=== PATIENT | female | born 1955 | race Caucasian/White ===

== ENCOUNTER 2016-07-19 13:50 | Inpatient (IN) | payer BC ==
[~2016-07-19] VITALS: Ht 160 cm; Wt 57.8 kg
--- NOTE | ~2016-07-19 | OR ---
PATIENT'S NAME: LAKSHMI ABERNATHY [facility] AGE: 61 Y [address] 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 PROCEDURE PERFORMED: Right nephroureterectomy. ANESTHESIA: General with epidural. ESTIMATED BLOOD LOSS: 50 mL. INDICATIONS FOR PROCEDURE: The patient is a 61-year-old female, who has experienced gross hematuria for approximately 6 months. The patient had a cystoscopy with retrograde pyelograms and also a repeat abdominal and pelvic CT scan with IV contrast that revealed a right renal pelvic tumor consistent with transitional cell carcinoma. DETAILS OF PROCEDURE: After informed consent was obtained, the patient was taken to the operating room. The epidural and then a general anesthetic was applied. The patient was placed in the supine position. The abdomen and groin area were prepped and draped in normal sterile fashion. A Celis catheter was placed and the bladder was filled to approximately 200 mL. Again, the abdomen was prepped and draped in normal sterile fashion. A right subcostal skin incision was made with a scalpel blade. Electrocautery was then used to carry the incision down to the anterior fascial layer. The anterior fascial layer was then opened with electrocautery. The rectus muscle was divided. We then opened the posterior fascial layer with electrocautery. The kidney was clearly visualized. Gerota's fascia was opened anteriorly. This was then dissected off the kidney. The kidney was completely freed up. We identified the ureter and placed a vessel loop around it. Next, we identified the renal vessels. She appeared to have significant superficial renal veins and also two renal arteries. We then clamped and divided the superficial renal vein. These were tied off with a silk suture. Next, the pedicle clamp was placed around the renal vein and arteries. These were then divided and tied off with two 2-0 silk sutures, placed around it twice. This PATIENT'S NAME: LAKSHMI ABERNATHY [facility] AGE: 61 Y [address] ROOM: [address] [address] [place] [facility] [place]: 07/20/2016 OR/Procedure Report DISCHARGE DATE: FAMILY PHYSICIAN: Kaitlin Saleem MD ATTENDING PHYSICIAN: Betzy Templeton freed up the specimen. We then divided the ureter and placed a hemostat on the proximal, and the kidney was handed off to be sent to Pathology. We then traced, freed up the ureter down towards the pelvis. Once this was completed, then we divided the ureter and tied off with a long silk suture to help us to identify it. The wound was irrigated with water. The posterior fascia was then closed with a running interlocking #1 Vicryl suture. The anterior fascial layer was closed with a #1 nylon suture in a running fashion. Subcuticular tissue was closed with interrupted 3-0 Vicryl sutures and the skin was closed with amita. Next, a lower midline skin incision was made in her previous scar tissue. This was made with a scalpel blade and then the fascial layer was opened with electrocautery. We located the remnants of the ureter and dissected down to the bladder. The patient has had colon stuck to her bladder in multiple locations from her previous surgery. Because of this, it made it difficult to enter into the bladder safely and so it was decided to dissect the ureter down to the bladder and then it was clamped and divided. We then tied off the distal segment with a silk suture. A frozen section of the distal ureter was negative for cancer. Next, we closed the fascial layer with a running #1 nylon suture. Juan's layer was closed with interrupted 3- 0 Vicryl sutures, and the skin was closed with amita. The wounds were then dressed in normal sterile fashion. The patient tolerated her procedure very well and was transferred to the recovery room in good condition. MD KEVIN BRAKLEY/ashleigh /[id number] d: 07/20/16 2225 t: 07/26/16 0942, OPERATIVE SUMMARY
--- NOTE | ~2016-07-19 | DS ---
PATIENT'S NAME: LAKSHMI ABERNATHY [facility] AGE: 61 Y [address] ROOM: [address] [address] [place] [facility] [place]: 07/20/2016 Discharge Summary DISCHARGE DATE: 07/23/2016 FAMILY PHYSICIAN: Kaitlin Saleem MD ATTENDING PHYSICIAN: Betzy Templeton ADMITTING DIAGNOSIS: Right renal pelvic transitional cell carcinoma. DISCHARGE DIAGNOSIS: Right renal pelvic transitional cell carcinoma. PROCEDURE PERFORMED: Right nephroureterectomy. HOSPITAL COURSE: The patient is a 61-year-old female with a history of recurrent gross hematuria. After the appropriate evaluation, she was noted to have a right renal pelvic mass consistent with transitional cell carcinoma of the right renal pelvis. The patient underwent right nephroureterectomy on the day of admission without complication. On the first postoperative day, she was afebrile with stable vitals. Her creatinine was 1.0 and her hemoglobin and hematocrit were 10.9 and 33.1 respectively. The patient was started on sips of clears, then up into the chair. On the second postoperative day, the patient was passing flatus with good bowel sounds. She was started on clear liquids and her diet was advanced as tolerated and she began ambulating. On the third postoperative day, the patient was tolerating a regular diet and ambulating. Her epidural catheter was removed early in the morning and her Celis catheter was also removed. The patient was discharged to home with followup scheduled with myself in 3 months and in 1 week, she will see her family physician for staple removal. Final pathology report indicated transitional cell carcinoma of the renal pelvis without spread. All margins were negative. MD KEVIN BARKLEY/ashleigh /[id number] d: 07/24/16 0010 t: 08/16/16 1914, DISCHARGE SUMMARY
[~2016-07-19 13:50] MED LIST: CALCIUM 500 +1 EAC4 PO; DUAVEE 0.45-201 EACH PO; THERA-VITE W/ B1 TAB PO
--- NOTE | 2016-07-20 15:28 | NUR ---
Met with patient, , daughter and son-in-law at bedside today. Introduced myself and explained my role with the CM department. Very pleasant family. Patient's plan is to return home once medically cleared for discharge. Her daughter is planning on staying with her through next Tuesday and can stay longer if necessary. She has another daughter who has offered to come and stay as well as many friends and shinto members that have offered to assist with care. Patient and family have two questions they want to address with Dr. Templeton. I placed two notes on patient's chart and also shared these questions with patient's nurse Danielle. First they want to know an approximate time period it will be before they have the pathology results. Second, patient states a nurse in pre-op mentioned to her the possibility of going home on an epidural to help with pain control. She states that she does not tolerate pain meds well and she really does not want to take Percocet because she does not like the way it makes her feel. Her nurse Danielle states she is not aware of patient's going home with an epidural. Charge nurse Kristyn states some have had an epidural injection. I have a note on the chart so hopefully Dr. Templeton will address this with patient. Will continue to offer supports and follow while here.
--- NOTE | 2016-07-20 17:31 | NUR ---
LATE ENTRY 0917 PATIENT ARRIED WITH EPIDURAL. BOLUS ADMINISTERED VIA BRANCH OPERATIONS SPECIALIST. CAD PUMP INITIATED AT 1000. HAD A DIFFICULT TIME WITH PAIN CONTROL AND HAD TO INCREASE EPIDURAL AND GAVE A BOLUS FOR BETTER PAIN CONTROL. PATIENT WAS NAUSIATED AND ZOFRAN GIVEN FOR NAUSIA. 1100 PAIN IS TOLERABLE AT THIS TIME. NO MORE NAUSIA. DRESSING CONTINUE TO HAVE SOME SHADOWING BUT IS HAS NOT INCREASED, 1130 GOOD PAIN CONTROL. PATIENT HAS BEEN RESTING COMFORTABLE. O2 HAS BEEN WEANED TO 2 LITERS. GOOD URINE OUTPUT. 1200 CONTINUES TO REST COMFORTABLE NO CHANGES IN ASSESSMENT, GOOD PAIN CONTROL. 1230 CONTINUES TO REST COMFORTABLE WITH GOOD PAIN CONTROL. EASILY AROUSES. 1300 TRANSFERED TO MED/SURG. PATIENT STABLE, GOOD PAIN CONTROL.
--- NOTE | 2016-07-20 17:31 | NUR ---
Significant Event: PT ARRIVED FROM PACU AT 1310, R NEPHROURETERECTOMY FOR DR CASTAÑEDA. IVF RUNNING D51/2NS @125ML/HR. FENTANYL EPIDURAL RUNNING 10CONTINUOUS, 2 DEMAND, 30MIN LOCKOUT. HAD A TOTAL OF 7 DEMANDS, 4 DELIVERIES. OLIVAREZ PATENT, HAD 450ML OUTPUT. REMAINS NPO, BEDREST. LOTS OF FAMILY AT BEDSIDE. DRESSING TO MIDLINE ABDOMEN, SMALL AMOUNT DRAINAGE NOTED, ALSO DRESSING TO RU ABDOMEN, SCANT AMOUNT DRAINAGE NOTED. POST OP VITALS REMAINING ARE HOURLY 1855, 1955. Follow up: BEDREST, MONITOR PAIN
--- NOTE | 2016-07-21 03:59 | NUR ---
Significant Event:pt is a/o x3. pt has iv to l wrist and r fa, d5 1/2 ns running to l wrist. epidural costuming supervisor w/ fent/ ropivocaine @10ml continuous and 2ml bolus w/ 30 min lockout only had 3 demands. conteh w/ clear yellow urine output. incisions to abdomen x2 has old shadow drainage otherwise intact. bedrest, npo w/ ice chips. pt has been hypertensive. Follow up:
[2016-07-21 05:06] LABS: BASOPHIL % 0.4 %; EOSINOPHIL % 0.2 %; HEMATOCRIT 33.1 % (33.0-46.0); HEMOGLOBIN 10.9 g/dL (10.0-15.0); IMMATURE GRANULOCYTE % 0.2 %; LYMPHOCYTE # 0.9 K/uL (0.8-4.0); MCH 31.4 pg (27.0-34.0); MCHC 32.9 gm/dL (32.0-36.5); MCV 95.4 fl (83.0-98.0); MONOCYTE # 0.8 K/uL (0.0-1.0); MONOCYTE % 9.5 %; MPV 9.1 fl (9.4-12.4); NEUTROPHIL # (ANC) 6.7 K/uL (1.8-7.8); NEUTROPHIL % 79.7 %; NRBC % 0 /100WBC (0-0.00); PLATELET COUNT 235 K/uL (150-450); RBC 3.47 M/uL (3.50-5.50); RDW-CV 13.2 % (11.9-14.6); WBC 8.5 K/uL (4.0-11.0)
[2016-07-21 05:25] LABS: ALBUMIN 3.1 gm/dL (3.5-5.0); ANION GAP 11.7 (10.0-19.0); CALCIUM 7.7 mg/dL (8.5-10.5); PHOSPHORUS 2.7 mg/dL (2.5-4.9); POTASSIUM 3.7 mMol/L (3.7-5.1)
--- NOTE | 2016-07-21 15:44 | NUR ---
Significant Event: Patient is alert and oriented x3. VSS- Blood pressure was elevated this afternoon- 168/81- but was having more pain at that time. Increased epidural to 12ml/hr continuous with a 2 ml every 30 minute bolus. After increasing the epidural patient states her pain is better. Can be up to the chair only. Tried sitting on the edge of the bed and standing but felt very dizzy and nauseated and turned pale so we laid back down. She said she wants to try again early this evening or later. Has been taking in ice chips, but can have sips of clears. L)Wrist and R)AC IV- fluids infusing into the L)wrist. Celis in place. Catether cares completed x2. Incisions present to the abdomen x2, covered with air strips- old drainage noted, but no new drainage noted. Bag bath was completed this morning by MEDICINE WORKER. Cooperative with cares.
--- NOTE | 2016-07-22 04:54 | NUR ---
Significant Event: Patient alert and oriented X4. Resting in bed, refused to get up to chair, was too tired and still in some pain. Epidural with fent/ropivicaine going at 12mcg cont and 2 demand every 30 min. 5 demands and 5 deliveries. Rates pain at 4-5. On room air. ETCO2 monitor on. Vitals stable. Aromatherapy in room to help with headache, and cool washcloth applied to forehead. RElief noted. Slept well this shift. Hopes to get up to chair today. IV saline locked to R) wrist and infusing to L) forearm. PNeumatics on. Celis draining adequate light yellow urine. Cooperative with cares. Follow up: Monitor epidural
--- NOTE | 2016-07-22 11:23 | NUR ---
I have examined the student charting and find it acceptable. SEA Anthony
--- NOTE | 2016-07-22 15:33 | NUR ---
Significant Event: Patient is alert and oriented x3. VSS and RA. Blood pressure in the 150's. Nubain given around 1251 for itching, relief noted. Settings on the epidural stayed the same. 12 cont. and 2 per a 30 minute lockout. Had 6 demands and 6 delivieries. Tolerating liquids very well, SL. Will try a soft diet tonight for supper. Has ambulated in the rehman x2. Has sat up in the chair for majority of the day and done well. R)Wrist and L)FA IV, SL. Celis catether in place, excellent output. Pale yellow in color. Family in and out. Dressings to the abdomen x2, 2 of them are overlapping- still old drainage noted, no new drainage. Passing gas. Bag bath given by the student this AM. Cooperative with cares.
--- NOTE | 2016-07-23 05:25 | NUR ---
Significant Event: Patient alert and oriented X4. Up and walked in halls X1 this shift. Walks with stand by assist. Epidural was running at 6mcg cont, 2 demand and 30 min lockout. Was to be turned off at [address] Templeton. [place] given at that time to help patient keep pain under control. Saline locks to both wrists. Celis in place and order to take out at 0900 today. Patient tolerated soft diet for supper. Denies nausea. Planning to go home today. Follow up: Monitor pain
--- NOTE | 2016-07-23 12:32 | NUR ---
I have examined the student charting and find it acceptable. SEA Clifford
[2016-07-23] MEDS ORDERED: NORCO 10-325 T1 EACH PO (15:53)
--- NOTE | 2016-07-23 16:56 | NUR ---
D:Orders received for patient to be dismissed. I:Dismissal instructions were prepared and reviewed with the patient and her family. The following information was reviewed:diet and activity recommendations for home, s/s of infection to monitor for and to report to MD if any occur, dressing/incisional care for home, home medications/new prescription medications and plans for follow up appointment with Dr. Templeton in 3 months. The patient told me Dr. Templeton instructed her to make a follow up appointment with her sheep boner for staple removal for 1 week from now so I went ahead and cancelled the appointment I had made for her at Dr. Templeton' office for next week. Donna teaching given to and reviewed with the patient on the following topics: Discharge Instructions for Nephrectomy, [place] and Preventing DVT's. R:The patient verbalized understanding of instructions and denied further questions at that point in time. P:The patient signed her paperwork, her saline lock IV was removed and her vitals were taken. The patient's primary nurse was informed that the dismissal teaching had been completed. The patient was going to be dismissed this afternoon. Alla OSEI
--- NOTE | 2016-07-28 14:41 | NUR ---
Post hospitalization follow up call made to patient. Patient reports that she is doing better each day. Has made arrangement to have stitches out at her PCP's office in [place] and will see Dr. Templeton in October for a three month follow up visit. No questions about her medications. States her hospital stay when well, with very good care for every nurse who cared for her. She states their care was "greatly appreciated"
== END 2016-07-23 16:45 | disposition disaster alternative care site (69) | DRG 658 ==
LOC: GPOC 13:50 → GMSU 07-20 05:15 → EDSTATUS 07-20 14:00 → GMSU 07-23 16:45
PROVIDERS: ADMIT Urology
PROC: 0TT00ZZ Resection of Right Kidney, Open Approach (ICD-10-PCS; principal; 2016-07-20)
PROC: 00HU33Z Insertion of Infusion Device into Spinal Canal, Percutaneous Approach (ICD-10-PCS; principal; 2016-07-20)
PROC: 0TT60ZZ Resection of Right Ureter, Open Approach (ICD-10-PCS; principal; 2016-07-20)
DX: C65.1 Malignant neoplasm of right renal pelvis (principal)
CPT/HCPCS: J0295; J0690; J2001; J2300; J2405; J3010; J7030; J7040

== ENCOUNTER → 2016-10-27 | Outpatient (CLI) | payer BC ==
[~2016-10-27] MED LIST changes: +NORCO 10-325 T1 EACH PO
== END | disposition disaster alternative care site (69) ==
LOC: GRAD 11:00
DX: Z08 Encounter for follow-up examination after completed treatment for malignant neoplasm (principal); Z85.54 Personal history of malignant neoplasm of ureter